=== PATIENT | female | born 1970 | race African-American/Black ===

== ENCOUNTER 2017-01-16 22:26 | Emergency (ER) | payer OTHER ==
--- NOTE | ~2017-01-16 | CR63 ---
[facility] A Service of [facility] & [facility] RADIOLOGY TEXT RESULTS PATIENT: LAURA LEWIS LOCATION: SED : 68 UNIT #: [id number] AGE: [address]: Neheimas Burden MD SEX: F ORDER DR: [id number] [place] [id number] E MR#: [id number] Acc #: [id number] NAME: LAURA LEWIS : 1970 SEX: F STUDY DATE/TIME: 01/16/2017 22:38 UNIT: SED ROOM: STUDY DESCRIPTION: CR Chest 2 View Attending Physician: Nehemias Burden M.D. Ordering Physician: Nehemias Burden M.D. Primary Care Physician: Primary Care Physician No MEDICAL IMAGING REPORT This report is preliminary unless electronic signature is present. EXAM Chest x-ray 06/03/1817. HISTORY 46-year-old female in the ED complaining of 2-week history of cough, body aches, chills, congestion and fever. TECHNIQUE PA and lateral upright chest series. FINDINGS Minimal linear atelectasis left lung base. The lungs appear clear. No visible airspace consolidation or pleural effusion. Heart size and pulmonary vascularity are normal. IMPRESSION Minimal linear atelectasis left lung base. The exam is otherwise negative. Dictated by... Marino Beth M.D. THIS IS AN ELECTRONICALLY VERIFIED REPORT Marino Beth M.D. at 01/18/2017 9:53 PM RGW/domenico TD: 01/18/2017 07:22 JOB #: [id number] MEDICAL IMAGING REPORT
[2017-01-16 22:23] LABS: INFLUENZA A NEG (NEG); INFLUENZA B NEG (NEG)
[~2017-01-16 22:26] MED LIST: ACETAMINOPHEN; ASACOL400 MG PO; MUCINEX100 MG/5 M; NO MEDICATIONS; PHENERGAN25 MG PO; THERAFLU FLU
== END 2017-01-16 23:36 | disposition home or self-care (01) ==
LOC: SED 22:26
PROVIDERS: Physician Assistant
DX: J20.9 Acute bronchitis, unspecified (principal); F17.200 Nicotine dependence, unspecified, uncomplicated
CPT/HCPCS: 71020; 87804; 99283